=== PATIENT | female | born 1985 | race American Indian/Alaskan Native ===

== ENCOUNTER 2017-05-11 15:48 | Emergency (ER) | payer MEDICAID ==
--- NOTE | 2017-05-11 17:49 | Emergency Department Report ---
Blank Doc - Documentation Documentation: She is a 31-year-old black female is presenting with chest pains to stasis achy does not hurt with breathing is not exertional was lower back pain. EKG is within normal limits order a chest x-ray and urinalysis test
[2017-05-11 18:30] LABS: HCG Qualitative,Urine Negative (Negative)
[2017-05-11 18:35] LABS: Bilirubin,Urine NEG (Negative); Blood,Urine NEG (Negative); Color,Urine Yellow (Yellow); Mucus,Urine FEW /HPF; Nitrite,Urine NEG (Negative); Protein,Urine <15 mg/dL mg/dL (Negative)
--- NOTE | 2017-05-11 20:00 | XRay Report ---
FINAL REPORT PROCEDURE: XR CHEST ROUTINE 2V TECHNIQUE: PA and lateral chest radiographs were obtained. CPT 40128 HISTORY: Cough. COMPARISON: No prior studies are available for comparison. FINDINGS: Heart: Normal. Mediastinum/Vessels: Normal. Lungs/Pleural space: Normal. Bony thorax: No acute osseous abnormality. Other: IMPRESSION: No radiographic evidence of acute cardiopulmonary disease.
--- NOTE | 2017-05-11 20:15 | Emergency Department Report ---
ED General Adult HPI - General Chief complaint: Back Pain/Injury Stated complaint: BACK PAIN Time Seen by Provider: 05/11/17 17:39 Source: patient Mode of arrival: Ambulatory Limitations: No Limitations - History of Present Illness Initial comments: This is a 31 y.o. female presents with low back pain and pain across chest that started Sunday. She is having swelling to ankles bilaterally. Mother in 2013 and started having panic attacks since her mother . States they where under control but restarted December 2016. She was taking something when it originally started but once it got under control discontinued taking medication. She received a call about her daughter at work and had a panic attack then. She is wondering if this chest pain is associated to panic attacks. Patient states back pain was so bad last night it felt like she was having contractions. She had her nephew and daughter walk on her back and the pain was unresolved. Currently not having pain. She called PCP and have appointment 05/21/17. Denies chest pain/pressure, congestion, fever, rhinorrhea, SOB, or wheezing. -: days(s) (4) Location: back (lower back nonradiating), lower extremity (swelling to bilateral ankles) Radiation: non-radiation Severity scale (0 -10): 4 Quality: aching Consistency: intermittent Improves with: none Worsens with: none Associated Symptoms: denies other symptoms Treatments Prior to Arrival: none - Related Data Previous Rx's Medication Instructions Recorded Last Taken Type Ibuprofen 800 mg PO Q6H PRN #20 tablet 05/11/17 Unknown Rx Sertraline [Zoloft] 25 mg PO QDAY #30 tab 05/11/17 Unknown Rx Allergies Allergy/AdvReac Type Severity Reaction Status Date / Time No Known Allergies Allergy Verified 05/11/17 15:51 ED Review of Systems ROS: Stated complaint: BACK PAIN Other details as noted in HPI Constitutional: denies: chills, fever Respiratory: no symptoms reported Cardiovascular: chest pain (across chest with deep breath), edema (nonpitting bilateral ankles). denies: palpitations, dyspnea on exertion, orthopnea, paroxysmal nocturnal dyspnea Gastrointestinal: denies: abdominal pain, nausea, diarrhea Musculoskeletal: back pain (low back pain) Skin: denies: rash, lesions Neurological: denies: headache, weakness, paresthesias ED Past Medical Hx - Past Medical History Previous Medical History?: No Additional medical history: MORBID OBESITY - Surgical History Additional Surgical History: CYST REMOVAL FRON CERVIX - Social History Smoking Status: Never Smoker Substance Use Type: None - Medications Home Medications: Home Medications Medication Instructions Recorded Confirmed Last Taken Type Ibuprofen 800 mg PO Q6H PRN #20 tablet 05/11/17 Unknown Rx Sertraline [Zoloft] 25 mg PO QDAY #30 tab 05/11/17 Unknown Rx ED Physical Exam - General Limitations: No Limitations General appearance: alert, in no apparent distress - Respiratory Respiratory exam: Present: normal lung sounds bilaterally. Absent: respiratory distress - Cardiovascular Cardiovascular Exam: Present: regular rate, normal rhythm. Absent: systolic murmur, diastolic murmur, rubs, gallop - GI/Abdominal GI/Abdominal exam: Present: soft, normal bowel sounds - Extremities Exam Extremities exam: Present: full ROM, normal capillary refill, pedal edema ( bilateral). Absent: tenderness, calf tenderness - Back Exam Back exam: Present: full ROM, vertebral tenderness (bilateral). Absent: CVA tenderness (R), CVA tenderness (L), muscle spasm, rash noted - Neurological Exam Neurological exam: Present: alert, oriented X3, normal gait - Skin Skin exam: Present: warm, dry, intact, normal color. Absent: rash ED Course Vital Signs 05/11/17 15:51 Temperature 97.3 F L Pulse Rate 80 Respiratory 18 Rate Blood Pressure 134/88 O2 Sat by Pulse 98 Oximetry ED Medical Decision Making - Radiology Data Radiology results: image reviewed CXR normal - Medical Decision Making 31 y.o. female that presents with chest pain and low back pain for 4 days. She is currently not in pain. History of panic attacks and currently off medication. Patient examined by me and Cathryn Chapman and stable. No distress noted. Obtained EKG and read by Dr. Nieto, normal sinus rhythm. CXR, UA, & HCG obtained and normal. Vitals stable. Normal assessment. Discharged home to f/u outpatient. Restart zoloft F/U with PCP. Critical care attestation.: If time is entered above; I have spent that time in minutes in the direct care of this critically ill patient, excluding procedure time. ED Disposition Clinical Impression: Acute costochondritis, Anxiety Disposition: DC-01 TO HOME OR SELFCARE Is pt being admited?: No Does the pt Need Aspirin: No Condition: Stable Instructions: Costochondritis (ED), Anxiety (ED) Additional Instructions: Take ibuprofen, naproxen, or tylenol for pain. Zoloft may cause drowsiness take medication at night. Don't discontinue taking medication abruptly. Follow up with primary care provider in 2-3 days. Prescriptions: Ibuprofen 800 mg PO Q6H PRN #20 tablet PRN Reason: Pain Sertraline [Zoloft] 25 mg PO QDAY #30 tab Referrals: [facility] [Outside] - 3-5 Days [facility] [Outside] - 3-5 Days [facility] [Outside] - 3-5 Days Forms: Work/School Release Form(ED) Time of Disposition: 21:22 Print Language: [place]
[2017-05-11 21:41] VITALS: BP 143/92
== END 2017-05-11 21:43 | disposition home or self-care (01) ==
LOC: ED 15:48
DX: M94.0 Chondrocostal junction syndrome [Tietze] (principal); F41.8 Other specified anxiety disorders; E66.01 Morbid (severe) obesity due to excess calories
CPT/HCPCS: 71046; 81001; 81025; 93005; 93010; 99284

== ENCOUNTER 2017-06-05 23:07 | Emergency (ER) | payer MEDICAID ==
[2017-06-05] MEDS ORDERED: ASPIRIN PO ONE (23:23)
[2017-06-05 23:51] LABS: Basophils % (Auto) 0.7 % (0.0-1.8); Eosinophils # (Auto) 0.4 K/mm3 (0.0-0.4); Eosinophils % (Auto) 6.2 % (0.0-4.3); Hematocrit 34.2 % (30.3-42.9); Hemoglobin 10.8 gm/dl (10.1-14.3); Lymphocytes # (Auto) 2.6 K/mm3 (1.2-5.4); Lymphocytes % (Auto) 37.9 % (13.4-35.0); Mean Corpuscular HGB Conc 32 % (30-34); Mean Corpuscular Volume 78 fl (79-97); Monocytes # (Auto) 0.5 K/mm3 (0.0-0.8); Monocytes % (Auto) 7.9 % (0.0-7.3); Platelet Count 231 K/mm3 (140-440); Red Blood Count 4.38 M/mm3 (3.65-5.03); Red Cell Distribution Width 16.2 % (13.2-15.2)
[2017-06-05 23:55] LABS: Mean Corpuscular Hemoglobin 25 pg (28-32)
[2017-06-06 00:16] LABS: BUN/Creatinine Ratio 15; Blood Urea Nitrogen 9 mg/dL (7-17); Calcium 8.6 mg/dL (8.4-10.2); Hemolysis Index 4
--- NOTE | 2017-06-06 07:02 | Emergency Department Report ---
ED Chest Pain HPI - General Chief Complaint: Chest Pain Stated Complaint: CHEST PAIN Time Seen by Provider: 06/06/17 06:53 Source: patient Mode of arrival: Ambulatory Limitations: No Limitations - History of Present Illness Initial Comments: Patient is 31 years old female with no significant past medical history presented to the ER with complaint of substernal chest pain sharp in nature comes and goes for the last 2-3 days associated with cough productive. Patient denied any shortness of breath, nausea or vomiting no fever. MD Complaint: chest pain Pain Location: substernal Severity: moderate Quality: sharp Worsens With: inspiration Other Symptoms: cough - Related Data Previous Rx's Medication Instructions Recorded Last Taken Type Ibuprofen 800 mg PO Q6H PRN #20 tablet 05/11/17 Unknown Rx Sertraline [Zoloft] 25 mg PO QDAY #30 tab 05/11/17 Unknown Rx Allergies Allergy/AdvReac Type Severity Reaction Status Date / Time No Known Allergies Allergy Verified 05/11/17 15:51 Heart Score - HEART Score History: Slightly suspicious EKG: Non-specific Age: < 45 Risk factors: No known risk factors Troponin: < normal limit HEART Score: 1 - Critical Actions Critical Actions: 0-3 pts:0.9-1.7%risk of adverse cardiac event.Candidate for discharge ED Review of Systems ROS: Stated complaint: CHEST PAIN Other details as noted in HPI Comment: All other systems reviewed and negative Constitutional: denies: chills, fever Respiratory: cough. denies: shortness of breath Cardiovascular: chest pain. denies: palpitations, dyspnea on exertion Gastrointestinal: denies: abdominal pain, nausea, vomiting Neurological: denies: headache, weakness, numbness ED Past Medical Hx - Past Medical History Previous Medical History?: Yes Additional medical history: MORBID OBESITY - Surgical History Past Surgical History?: Yes Additional Surgical History: CYST REMOVAL FRON CERVIX - Social History Smoking Status: Never Smoker Substance Use Type: None - Medications Home Medications: Home Medications Medication Instructions Recorded Confirmed Last Taken Type Ibuprofen 800 mg PO Q6H PRN #20 tablet 05/11/17 Unknown Rx Sertraline [Zoloft] 25 mg PO QDAY #30 tab 05/11/17 Unknown Rx ED Physical Exam - General Limitations: No Limitations General appearance: alert, in no apparent distress - Head Head exam: Present: atraumatic, normocephalic, normal inspection - Eye Eye exam: Present: normal appearance, PERRL - ENT ENT exam: Present: normal exam, normal orophraynx, mucous membranes moist - Neck Neck exam: Present: normal inspection, full ROM. Absent: tenderness, meningismus - Respiratory Respiratory exam: Present: normal lung sounds bilaterally. Absent: respiratory distress, wheezes, rales, rhonchi, chest wall tenderness, accessory muscle use, decreased breath sounds, prolonged expiratory - Cardiovascular Cardiovascular Exam: Present: regular rate, normal rhythm, normal heart sounds - GI/Abdominal GI/Abdominal exam: Present: soft, normal bowel sounds. Absent: distended, tenderness, guarding, rebound, rigid, organomegaly, mass, bruit, pulsatile mass , hernia - Extremities Exam Extremities exam: Present: normal inspection, full ROM, normal capillary refill - Back Exam Back exam: Present: normal inspection, full ROM. Absent: tenderness, CVA tenderness (R), CVA tenderness (L), muscle spasm, paraspinal tenderness, vertebral tenderness, rash noted - Neurological Exam Neurological exam: Present: alert, oriented X3, CN II-XII intact, normal gait - Skin Skin exam: Present: warm, intact, normal color. Absent: cyanosis ED Course Vital Signs 06/05/17 06/05/17 06/05/17 23:15 23:24 23:41 Temperature 98.6 F 98.6 F Pulse Rate 83 83 90 Respiratory 18 18 Rate Blood Pressure 121/74 121/74 107/61 O2 Sat by Pulse 100 100 95 Oximetry 06/06/17 06/06/17 06/06/17 05:46 06:00 06:27 Temperature Pulse Rate 75 65 Respiratory 19 17 18 Rate Blood Pressure 128/80 O2 Sat by Pulse 99 100 98 Oximetry - Reevaluation(s) Reevaluation #1: 06/06/17 07:01 Patient is chest pain-free now. ED Medical Decision Making - Lab Data Result diagrams: 06/05/17 23:37 06/05/17 23:37 - EKG Data -: EKG Interpreted by Me EKG shows normal: sinus rhythm - EKG Data Interpretation: no acute changes Critical care attestation.: If time is entered above; I have spent that time in minutes in the direct care of this critically ill patient, excluding procedure time. ED Disposition Clinical Impression: Atypical chest pain, Acute bronchitis Disposition: -01 TO HOME OR SELFCARE Is pt being admited?: No Condition: Stable Instructions: Chest Pain (ED), Acute Bronchitis (ED), Costochondritis (ED) Referrals: SARAH JYA MD [Primary Care Provider] - 3-5 Days
[2017-06-06 08:47] VITALS: BP 133/86
== END 2017-06-06 08:45 | disposition home or self-care (01) ==
LOC: ED 23:07
DX: J20.9 Acute bronchitis, unspecified (principal)
CPT/HCPCS: 36415; 80048; 84484; 85025; 93005; 93010; 99283